=== PATIENT | female | born 1985 | race Caucasian/White ===

== ENCOUNTER → 2020-05-25 | Outpatient (CLI) | payer OTHER ==
[~2020-05-25] MED LIST: CENTRUM MU9 MG/15 ML PO; DIGOXIN125 MCG PO; LEVOFLOXACIN500 MG PO; LOPRESSOR 25 MG25 MG PO; MAXIPIME2 GM INJ; ZYVOX600 MG PO
== END ==
LOC: WCC 12:36
PROC: 0JBL0ZZ Excision of Right Upper Leg Subcutaneous Tissue and Fascia, Open Approach (ICD-10-PCS; principal; 2020-05-25)
DX: L89.893 Pressure ulcer of other site, stage 3 (principal); M62.81 Muscle weakness (generalized); R26.89 Other abnormalities of gait and mobility; Q05.9 Spina bifida, unspecified
CPT/HCPCS: G0463

== ENCOUNTER → 2020-06-02 | Outpatient (CLI) | payer OTHER | LOC: WCC 15:30 | DX: L89.893 Pressure ulcer of other site, stage 3 (principal); M62.81 Muscle weakness (generalized); R26.89 Other abnormalities of gait and mobility; Q05.9 Spina bifida, unspecified | CPT/HCPCS: G0463 ==

== ENCOUNTER → 2020-06-09 | Outpatient (CLI) | payer OTHER | LOC: WCC 14:11 | DX: L89.893 Pressure ulcer of other site, stage 3 (principal); Q05.9 Spina bifida, unspecified; M62.81 Muscle weakness (generalized); R26.89 Other abnormalities of gait and mobility | CPT/HCPCS: 97597 ==

== ENCOUNTER → 2020-06-16 | Outpatient (CLI) | payer OTHER | LOC: WCC 15:10 | PROC: 0KBN0ZZ Excision of Right Hip Muscle, Open Approach (ICD-10-PCS; principal; 2020-06-16) | DX: I96 Gangrene, not elsewhere classified (principal); L89.213 Pressure ulcer of right hip, stage 3; Q05.9 Spina bifida, unspecified; R26.89 Other abnormalities of gait and mobility; I49.9 Cardiac arrhythmia, unspecified; M86.9 Osteomyelitis, unspecified; Z79.2 Long term (current) use of antibiotics; Z79.899 Other long term (current) drug therapy ==

== ENCOUNTER → 2020-06-23 | Outpatient (CLI) | payer OTHER | LOC: WCC 13:55 | PROC: 0KBQ0ZZ Excision of Right Upper Leg Muscle, Open Approach (ICD-10-PCS; principal; 2020-06-23) | DX: I96 Gangrene, not elsewhere classified (principal); L89.213 Pressure ulcer of right hip, stage 3; Q05.9 Spina bifida, unspecified; M62.81 Muscle weakness (generalized); I49.9 Cardiac arrhythmia, unspecified; M86.9 Osteomyelitis, unspecified; R26.89 Other abnormalities of gait and mobility; Z79.2 Long term (current) use of antibiotics; Z79.899 Other long term (current) drug therapy ==

== ENCOUNTER → 2020-07-07 | Outpatient (CLI) | payer OTHER | LOC: WCC 15:00 | PROC: 0KBQ0ZZ Excision of Right Upper Leg Muscle, Open Approach (ICD-10-PCS; principal; 2020-07-07) | DX: I96 Gangrene, not elsewhere classified (principal); L89.893 Pressure ulcer of other site, stage 3; Q05.9 Spina bifida, unspecified; M62.81 Muscle weakness (generalized); R26.89 Other abnormalities of gait and mobility; I49.9 Cardiac arrhythmia, unspecified; M86.9 Osteomyelitis, unspecified; Z79.2 Long term (current) use of antibiotics; Z79.899 Other long term (current) drug therapy ==

== ENCOUNTER → 2020-07-14 | Outpatient (CLI) | payer OTHER | LOC: WCC 15:15 | PROC: 0JBL0ZZ Excision of Right Upper Leg Subcutaneous Tissue and Fascia, Open Approach (ICD-10-PCS; principal; 2020-07-14) | DX: I96 Gangrene, not elsewhere classified (principal); L89.893 Pressure ulcer of other site, stage 3; Q05.9 Spina bifida, unspecified; M62.81 Muscle weakness (generalized); R26.89 Other abnormalities of gait and mobility; I49.9 Cardiac arrhythmia, unspecified; M86.9 Osteomyelitis, unspecified; Z79.2 Long term (current) use of antibiotics; Z79.899 Other long term (current) drug therapy | CPT/HCPCS: 97605 ==

== ENCOUNTER → 2020-07-21 | Outpatient (CLI) | payer OTHER | LOC: WCC 15:12 | PROC: 0JBL0ZZ Excision of Right Upper Leg Subcutaneous Tissue and Fascia, Open Approach (ICD-10-PCS; principal; 2020-07-21) | DX: I96 Gangrene, not elsewhere classified (principal); L89.893 Pressure ulcer of other site, stage 3; Q05.9 Spina bifida, unspecified; M62.81 Muscle weakness (generalized); R26.89 Other abnormalities of gait and mobility; I49.9 Cardiac arrhythmia, unspecified; M86.9 Osteomyelitis, unspecified; Z79.2 Long term (current) use of antibiotics; Z79.899 Other long term (current) drug therapy | CPT/HCPCS: 97605 ==

== ENCOUNTER → 2020-07-28 | Outpatient (CLI) | payer OTHER | LOC: WCC 14:59 | PROC: 0KBQ0ZZ Excision of Right Upper Leg Muscle, Open Approach (ICD-10-PCS; principal; 2020-07-28) | DX: I96 Gangrene, not elsewhere classified (principal); L89.893 Pressure ulcer of other site, stage 3; Q05.9 Spina bifida, unspecified; M62.81 Muscle weakness (generalized); R26.89 Other abnormalities of gait and mobility; I49.9 Cardiac arrhythmia, unspecified; M86.9 Osteomyelitis, unspecified; Z79.2 Long term (current) use of antibiotics; Z79.899 Other long term (current) drug therapy ==

== ENCOUNTER → 2020-08-04 | Outpatient (CLI) | payer OTHER | LOC: WCC 15:05 | PROC: 0KBQ0ZZ Excision of Right Upper Leg Muscle, Open Approach (ICD-10-PCS; principal; 2020-08-04) | DX: I96 Gangrene, not elsewhere classified (principal); L89.893 Pressure ulcer of other site, stage 3; Q05.9 Spina bifida, unspecified; M62.81 Muscle weakness (generalized); R26.89 Other abnormalities of gait and mobility; I49.9 Cardiac arrhythmia, unspecified; M86.9 Osteomyelitis, unspecified; Z79.2 Long term (current) use of antibiotics; Z79.899 Other long term (current) drug therapy | CPT/HCPCS: 87070; 87077; 87186; 87205; 97605 ==

== ENCOUNTER → 2020-08-11 | Outpatient (CLI) | payer OTHER | LOC: WCC 14:36 | PROC: 0KBQ0ZZ Excision of Right Upper Leg Muscle, Open Approach (ICD-10-PCS; principal; 2020-08-11) | DX: I96 Gangrene, not elsewhere classified (principal); L89.893 Pressure ulcer of other site, stage 3; Q05.9 Spina bifida, unspecified; M62.81 Muscle weakness (generalized); R26.89 Other abnormalities of gait and mobility; I49.9 Cardiac arrhythmia, unspecified; M86.9 Osteomyelitis, unspecified; Z79.2 Long term (current) use of antibiotics; Z79.899 Other long term (current) drug therapy | CPT/HCPCS: 97605 ==

== ENCOUNTER → 2020-08-18 | Outpatient (CLI) | payer OTHER | LOC: WCC 15:30 | PROC: 0KBQ0ZZ Excision of Right Upper Leg Muscle, Open Approach (ICD-10-PCS; principal; 2020-08-18) | DX: I96 Gangrene, not elsewhere classified (principal); L89.893 Pressure ulcer of other site, stage 3; Q05.9 Spina bifida, unspecified; M62.81 Muscle weakness (generalized); R26.89 Other abnormalities of gait and mobility; I49.9 Cardiac arrhythmia, unspecified; M86.9 Osteomyelitis, unspecified; Z79.2 Long term (current) use of antibiotics; Z79.899 Other long term (current) drug therapy ==

== ENCOUNTER → 2020-08-25 | Outpatient (CLI) | payer OTHER | LOC: WCC 15:18 | DX: L89.893 Pressure ulcer of other site, stage 3 (principal); Q05.9 Spina bifida, unspecified; M62.81 Muscle weakness (generalized); R26.89 Other abnormalities of gait and mobility; Z79.2 Long term (current) use of antibiotics; Z79.899 Other long term (current) drug therapy ==

== ENCOUNTER → 2020-09-01 | Outpatient (CLI) | payer OTHER | LOC: WCC 14:38 | DX: L89.893 Pressure ulcer of other site, stage 3 (principal); Q05.9 Spina bifida, unspecified; M62.81 Muscle weakness (generalized); R26.89 Other abnormalities of gait and mobility; Z79.2 Long term (current) use of antibiotics; Z79.899 Other long term (current) drug therapy ==

== ENCOUNTER → 2020-09-15 | Outpatient (CLI) | payer OTHER | LOC: WCC 15:20 | DX: L89.893 Pressure ulcer of other site, stage 3 (principal); Q05.9 Spina bifida, unspecified; M62.81 Muscle weakness (generalized); R26.89 Other abnormalities of gait and mobility; Z79.2 Long term (current) use of antibiotics; Z79.899 Other long term (current) drug therapy ==

== ENCOUNTER → 2020-09-29 | Outpatient (CLI) | payer OTHER | LOC: WCC 15:14 | DX: L89.893 Pressure ulcer of other site, stage 3 (principal); Q05.9 Spina bifida, unspecified; M62.81 Muscle weakness (generalized); R26.89 Other abnormalities of gait and mobility; Z79.899 Other long term (current) drug therapy ==

== ENCOUNTER → 2020-10-06 | Outpatient (CLI) | payer OTHER | LOC: WCC 15:19 | DX: L89.893 Pressure ulcer of other site, stage 3 (principal); Q05.9 Spina bifida, unspecified; M62.81 Muscle weakness (generalized); R26.89 Other abnormalities of gait and mobility; Z93.3 Colostomy status; Z79.2 Long term (current) use of antibiotics; Z79.899 Other long term (current) drug therapy ==

== ENCOUNTER → 2020-10-13 | Outpatient (CLI) | payer OTHER | LOC: WCC 15:30 | PROC: 0KBQ0ZZ Excision of Right Upper Leg Muscle, Open Approach (ICD-10-PCS; principal; 2020-10-13) | DX: I96 Gangrene, not elsewhere classified (principal); L89.893 Pressure ulcer of other site, stage 3; Q05.9 Spina bifida, unspecified; M86.9 Osteomyelitis, unspecified; I49.9 Cardiac arrhythmia, unspecified; R26.89 Other abnormalities of gait and mobility; Z79.2 Long term (current) use of antibiotics; Z79.899 Other long term (current) drug therapy ==

== ENCOUNTER → 2020-10-29 | Outpatient (CLI) | payer OTHER | LOC: WCC 11:21 | DX: L89.893 Pressure ulcer of other site, stage 3 (principal); Q05.9 Spina bifida, unspecified; M62.81 Muscle weakness (generalized); R26.89 Other abnormalities of gait and mobility; Z79.899 Other long term (current) drug therapy ==

== ENCOUNTER → 2020-11-19 | Outpatient (CLI) | payer OTHER | LOC: WCC 10:28 | DX: L89.893 Pressure ulcer of other site, stage 3 (principal); Q05.9 Spina bifida, unspecified; M62.81 Muscle weakness (generalized); R26.89 Other abnormalities of gait and mobility; Z93.3 Colostomy status; Z79.899 Other long term (current) drug therapy ==

== ENCOUNTER → 2020-12-16 | Outpatient (CLI) | payer OTHER | LOC: WCC 14:45 | DX: L89.893 Pressure ulcer of other site, stage 3 (principal); Q05.9 Spina bifida, unspecified; M62.81 Muscle weakness (generalized); R26.89 Other abnormalities of gait and mobility; Z79.899 Other long term (current) drug therapy | CPT/HCPCS: 87070; 87077; 87186; 87205 ==

== ENCOUNTER → 2020-12-24 | Outpatient (CLI) | payer OTHER | LOC: WCC 09:30 | DX: L89.893 Pressure ulcer of other site, stage 3 (principal); Q05.9 Spina bifida, unspecified; M62.81 Muscle weakness (generalized); R26.89 Other abnormalities of gait and mobility; B96.5 Pseudomonas (aeruginosa) (mallei) (pseudomallei) as the cause of diseases classified elsewhere; Z88.8 Allergy status to other drugs, medicaments and biological substances ==

== ENCOUNTER → 2021-01-07 | Outpatient (CLI) | payer OTHER | LOC: WCC 09:30 | DX: L89.893 Pressure ulcer of other site, stage 3 (principal); Q05.9 Spina bifida, unspecified; M62.81 Muscle weakness (generalized); R26.89 Other abnormalities of gait and mobility; B96.5 Pseudomonas (aeruginosa) (mallei) (pseudomallei) as the cause of diseases classified elsewhere; Z79.899 Other long term (current) drug therapy ==

== ENCOUNTER → 2021-02-04 | Outpatient (CLI) | payer OTHER | LOC: WCC 08:21 | DX: L89.893 Pressure ulcer of other site, stage 3 (principal); Q05.9 Spina bifida, unspecified; M62.81 Muscle weakness (generalized); R26.89 Other abnormalities of gait and mobility; B96.5 Pseudomonas (aeruginosa) (mallei) (pseudomallei) as the cause of diseases classified elsewhere; Z93.3 Colostomy status; Z79.899 Other long term (current) drug therapy ==

== ENCOUNTER → 2021-02-18 | Outpatient (CLI) | payer OTHER | END | disposition home or self-care (01) | LOC: WCC 09:32 | PROC: 0JBL0ZZ Excision of Right Upper Leg Subcutaneous Tissue and Fascia, Open Approach (ICD-10-PCS; principal; 2021-02-18) | DX: L89.213 Pressure ulcer of right hip, stage 3 (principal); Q05.9 Spina bifida, unspecified; M62.81 Muscle weakness (generalized); R26.89 Other abnormalities of gait and mobility; B96.5 Pseudomonas (aeruginosa) (mallei) (pseudomallei) as the cause of diseases classified elsewhere; I49.9 Cardiac arrhythmia, unspecified; M86.9 Osteomyelitis, unspecified; Z79.899 Other long term (current) drug therapy ==

== ENCOUNTER → 2021-03-11 | Outpatient (CLI) | payer OTHER | LOC: WCC 07:43 | DX: L89.893 Pressure ulcer of other site, stage 3 (principal); Q05.9 Spina bifida, unspecified; M62.81 Muscle weakness (generalized); R26.89 Other abnormalities of gait and mobility; B96.5 Pseudomonas (aeruginosa) (mallei) (pseudomallei) as the cause of diseases classified elsewhere; Z79.899 Other long term (current) drug therapy ==

== ENCOUNTER → 2021-03-29 | Outpatient (CLI) | payer OTHER | LOC: WCC 11:40 | DX: L89.893 Pressure ulcer of other site, stage 3 (principal); Q05.9 Spina bifida, unspecified; M62.81 Muscle weakness (generalized); R26.89 Other abnormalities of gait and mobility; B96.5 Pseudomonas (aeruginosa) (mallei) (pseudomallei) as the cause of diseases classified elsewhere; Z79.899 Other long term (current) drug therapy ==

== ENCOUNTER → 2021-04-12 | Outpatient (CLI) | payer OTHER | LOC: WCC 09:13 | DX: L89.893 Pressure ulcer of other site, stage 3 (principal); Q05.9 Spina bifida, unspecified; M62.81 Muscle weakness (generalized); R26.89 Other abnormalities of gait and mobility; B96.5 Pseudomonas (aeruginosa) (mallei) (pseudomallei) as the cause of diseases classified elsewhere; Z79.899 Other long term (current) drug therapy ==

== ENCOUNTER → 2021-04-26 | Outpatient (CLI) | payer OTHER | END | disposition home or self-care (01) | LOC: WCC 08:33 | PROC: 0JBL0ZZ Excision of Right Upper Leg Subcutaneous Tissue and Fascia, Open Approach (ICD-10-PCS; principal; 2021-04-26) | DX: L89.213 Pressure ulcer of right hip, stage 3 (principal); Q05.9 Spina bifida, unspecified; M62.81 Muscle weakness (generalized); R26.89 Other abnormalities of gait and mobility; B96.5 Pseudomonas (aeruginosa) (mallei) (pseudomallei) as the cause of diseases classified elsewhere; Z79.899 Other long term (current) drug therapy ==

== ENCOUNTER → 2021-05-10 | Outpatient (CLI) | payer OTHER | LOC: WCC 08:31 | DX: L89.893 Pressure ulcer of other site, stage 3 (principal); Q05.9 Spina bifida, unspecified; M62.81 Muscle weakness (generalized); R26.89 Other abnormalities of gait and mobility; B96.5 Pseudomonas (aeruginosa) (mallei) (pseudomallei) as the cause of diseases classified elsewhere; Z93.3 Colostomy status; Z79.899 Other long term (current) drug therapy ==

== ENCOUNTER → 2021-06-07 | Outpatient (CLI) | payer OTHER | LOC: WCC 07:33 | DX: L89.893 Pressure ulcer of other site, stage 3 (principal); Q05.9 Spina bifida, unspecified; M62.81 Muscle weakness (generalized); R26.89 Other abnormalities of gait and mobility; B96.5 Pseudomonas (aeruginosa) (mallei) (pseudomallei) as the cause of diseases classified elsewhere ==

== ENCOUNTER → 2021-06-21 | Outpatient (CLI) | payer OTHER | LOC: WCC 08:16 | DX: L89.893 Pressure ulcer of other site, stage 3 (principal); Q05.9 Spina bifida, unspecified; M62.81 Muscle weakness (generalized); R26.89 Other abnormalities of gait and mobility; Z93.3 Colostomy status ==

== ENCOUNTER → 2021-07-12 | Outpatient (CLI) | payer OTHER | LOC: WCC 09:23 | DX: L89.893 Pressure ulcer of other site, stage 3 (principal); Q05.9 Spina bifida, unspecified; M62.81 Muscle weakness (generalized); R26.89 Other abnormalities of gait and mobility; Z93.3 Colostomy status ==

== ENCOUNTER → 2021-07-26 | Outpatient (CLI) | payer OTHER | END | disposition home or self-care (01) | LOC: WCC 08:53 | DX: T81.31XA Disruption of external operation (surgical) wound, not elsewhere classified, initial encounter (principal); I10 Essential (primary) hypertension; J44.9 Chronic obstructive pulmonary disease, unspecified; Z88.0 Allergy status to penicillin ==

== ENCOUNTER → 2021-08-09 | Outpatient (CLI) | payer OTHER | END | disposition home or self-care (01) | LOC: WCC 07:48 | PROC: 0JBL0ZZ Excision of Right Upper Leg Subcutaneous Tissue and Fascia, Open Approach (ICD-10-PCS; principal; 2021-08-09) | DX: L89.893 Pressure ulcer of other site, stage 3 (principal); Q05.9 Spina bifida, unspecified; M62.81 Muscle weakness (generalized); R26.89 Other abnormalities of gait and mobility ==

== ENCOUNTER → 2021-08-23 | Outpatient (CLI) | payer OTHER | LOC: WCC 09:08 | DX: L89.893 Pressure ulcer of other site, stage 3 (principal); Q05.9 Spina bifida, unspecified; M62.81 Muscle weakness (generalized); R26.89 Other abnormalities of gait and mobility; Z93.3 Colostomy status ==

== ENCOUNTER → 2021-09-13 | Outpatient (CLI) | payer OTHER | END | disposition home or self-care (01) | LOC: WCC 08:39 | DX: L89.893 Pressure ulcer of other site, stage 3 (principal); Q05.9 Spina bifida, unspecified; M62.81 Muscle weakness (generalized); R26.89 Other abnormalities of gait and mobility; Z79.899 Other long term (current) drug therapy ==

== ENCOUNTER → 2021-09-13 | Outpatient (CLI) | payer OTHER | LOC: RAD 15:47 | DX: L89.893 Pressure ulcer of other site, stage 3 (principal); S72.8X1D Other fracture of right femur, subsequent encounter for closed fracture with routine healing | CPT/HCPCS: 73552 ==

== ENCOUNTER → 2021-09-27 | Outpatient (CLI) | payer OTHER | LOC: WCC 08:19 | DX: L89.893 Pressure ulcer of other site, stage 3 (principal); Q05.9 Spina bifida, unspecified; M62.81 Muscle weakness (generalized); R26.89 Other abnormalities of gait and mobility; Z93.3 Colostomy status ==

== ENCOUNTER → 2021-10-11 | Outpatient (CLI) | payer OTHER | LOC: WCC 07:35 | DX: L89.893 Pressure ulcer of other site, stage 3 (principal); Q05.9 Spina bifida, unspecified; M62.81 Muscle weakness (generalized); R26.89 Other abnormalities of gait and mobility; Z79.899 Other long term (current) drug therapy ==

== ENCOUNTER → 2021-11-03 | Outpatient (CLI) | payer OTHER | END | disposition home or self-care (01) | LOC: WCC 07:50 | PROC: 0JBL0ZZ Excision of Right Upper Leg Subcutaneous Tissue and Fascia, Open Approach (ICD-10-PCS; principal; 2021-11-03) | DX: L89.893 Pressure ulcer of other site, stage 3 (principal); Q05.9 Spina bifida, unspecified; M62.81 Muscle weakness (generalized); R26.89 Other abnormalities of gait and mobility; I49.9 Cardiac arrhythmia, unspecified; M86.9 Osteomyelitis, unspecified; Z79.899 Other long term (current) drug therapy ==

== ENCOUNTER → 2021-11-22 | Outpatient (CLI) | payer OTHER | END | disposition home or self-care (01) | LOC: WCC 07:45 | DX: L89.894 Pressure ulcer of other site, stage 4 (principal); Q05.9 Spina bifida, unspecified; M62.81 Muscle weakness (generalized); R26.89 Other abnormalities of gait and mobility; Z79.899 Other long term (current) drug therapy ==

== ENCOUNTER → 2021-12-06 | Outpatient (CLI) | payer OTHER | END | disposition home or self-care (01) | LOC: WCC 07:37 | DX: L89.894 Pressure ulcer of other site, stage 4 (principal); Q05.9 Spina bifida, unspecified; M62.81 Muscle weakness (generalized); R26.89 Other abnormalities of gait and mobility ==

== ENCOUNTER → 2021-12-20 | Outpatient (CLI) | payer OTHER | END | disposition home or self-care (01) | LOC: WCC 07:11 | DX: L89.894 Pressure ulcer of other site, stage 4 (principal); Q05.9 Spina bifida, unspecified; M62.81 Muscle weakness (generalized); R26.89 Other abnormalities of gait and mobility; Z79.899 Other long term (current) drug therapy ==

== ENCOUNTER → 2022-01-18 | Outpatient (CLI) | payer OTHER | LOC: WCC 08:14 | DX: L89.894 Pressure ulcer of other site, stage 4 (principal); Q05.9 Spina bifida, unspecified; M62.81 Muscle weakness (generalized); R26.89 Other abnormalities of gait and mobility ==